=== PATIENT | female | born 1955 | race Two or more races ===

== ENCOUNTER → 2020-11-20 09:19 | Outpatient (CLI) | payer OTHER ==
[~2020-11-20 09:19] MED LIST: B12 ACTIVE1000 MCG PO; COZAAR25 MG PO; D3 + K2 DOTS 11 EACH PO; LEVO-T100 MCG PO; LIPITOR40 MG PO; MAGNESIUM200 MG PO; VITAMIN C500 M6 PO
== END | disposition home or self-care (01) ==
LOC: MRI 09:15
PROVIDERS: ATTEND Surgery
DX: K80.80 Other cholelithiasis without obstruction (principal)
CPT/HCPCS: 74181

== ENCOUNTER → 2020-12-23 | Day surgery (SDC) | payer OTHER | END | disposition home or self-care (01) | LOC: ADM 12-19 08:00 → CIR.AMB 05:42 | PROVIDERS: ATTEND Surgery | DX: K80.10 Calculus of gallbladder with chronic cholecystitis without obstruction (principal); Z20.822 Contact with and (suspected) exposure to COVID-19; Z53.09 Procedure and treatment not carried out because of other contraindication; T50.995A Adverse effect of other drugs, medicaments and biological substances, initial encounter ==

== ENCOUNTER → 2021-10-13 | Day surgery (SDC) | payer OTHER ==
[~2021-10-13] VITALS: Ht 162.6 cm; Wt 87.5 kg
[~2021-10-13] MED LIST changes: +CARAFATE1 GM PO
== END | disposition home or self-care (01) ==
LOC: EDSTATUS 10-09 07:00 → CIR.AMB 05:10
PROVIDERS: ATTEND Obstetrics & Gynecology
DX: N72 Inflammatory disease of cervix uteri (principal); N84.0 Polyp of corpus uteri; Q51.828 Other congenital malformations of cervix; Z20.822 Contact with and (suspected) exposure to COVID-19; Z91.041 Radiographic dye allergy status; Z91.013 Allergy to seafood; I10 Essential (primary) hypertension; E78.00 Pure hypercholesterolemia, unspecified; E03.9 Hypothyroidism, unspecified; K21.9 Gastro-esophageal reflux disease without esophagitis; E66.9 Obesity, unspecified

== ENCOUNTER 2021-11-05 08:24 | Outpatient (CLI) | payer OTHER | END 2021-11-05 08:25 | disposition home or self-care (01) | LOC: LAB 08:24 | PROVIDERS: ATTEND Internal Medicine Endocrinology, Diabetes & Metabolism | DX: E11.65 Type 2 diabetes mellitus with hyperglycemia (principal); E55.9 Vitamin D deficiency, unspecified; E03.9 Hypothyroidism, unspecified; D64.9 Anemia, unspecified; E78.2 Mixed hyperlipidemia; D61.9 Aplastic anemia, unspecified ==

== ENCOUNTER 2021-11-05 09:31 | Outpatient (CLI) | payer OTHER | END 2021-11-05 09:35 | disposition home or self-care (01) | LOC: SONOGRAMA 09:31 | PROVIDERS: ATTEND Internal Medicine Endocrinology, Diabetes & Metabolism | DX: E04.1 Nontoxic single thyroid nodule (principal) ==

== ENCOUNTER 2022-10-12 06:03 | Day surgery (SDC) | payer OTHER ==
[~2022-10-12] VITALS: Ht 162.6 cm; Wt 88.9 kg
== END 2022-10-12 14:55 | disposition home or self-care (01) ==
LOC: CIR.AMB 06:03
PROVIDERS: ATTEND Obstetrics & Gynecology
DX: N84.0 Polyp of corpus uteri (principal); N95.0 Postmenopausal bleeding; E78.00 Pure hypercholesterolemia, unspecified; E03.9 Hypothyroidism, unspecified; Z91.041 Radiographic dye allergy status; N80.129 Deep endometriosis of ovary, unspecified ovary; Z20.822 Contact with and (suspected) exposure to COVID-19